=== PATIENT | male | born 1995 | race Caucasian/White ===

== ENCOUNTER 2021-12-24 23:10 | Emergency (ER) | payer SELFPAY ==
[2021-12-25] MEDS ORDERED: Doxycycline 100 MG Cap PO ONE (00:41)
== END 2021-12-25 05:14 | disposition home or self-care (01) ==
LOC: JD.ED 23:10
DX: S51.011A Laceration without foreign body of right elbow, initial encounter (principal); Z72.0 Tobacco use; W45.8XXA Other foreign body or object entering through skin, initial encounter
CPT/HCPCS: 99283; A9270; 99282